=== PATIENT | male | born 1990 | race Caucasian/White ===

== ENCOUNTER 2016-04-30 11:56 | Emergency (ER) | payer SELFPAY ==
[~2016-04-30] VITALS: Ht 188 cm; Wt 83.9 kg
[~2016-04-30 11:56] MED LIST: IBUP200C48 PO
[2016-04-30] MEDS ORDERED: HYDROCODONE/APAP 5/325MG 1 EACH TABLET ONE (12:16)
[2016-04-30] MEDS ORDERED: HYDROCODONE/APAP 5/325MG 1 EACH TABLET PO ONE (12:30)
[2016-04-30 13:08] VITALS: BP 128/77
== END 2016-04-30 13:10 | disposition home or self-care (01) ==
LOC: ER 11:58
DX: S62.002A Unspecified fracture of navicular [scaphoid] bone of left wrist, initial encounter for closed fracture (principal); F17.200 Nicotine dependence, unspecified, uncomplicated; V29.88XA Motorcycle rider (driver) (passenger) injured in other specified transport accidents, initial encounter; Y93.89 Activity, other specified; Y92.89 Other specified places as the place of occurrence of the external cause; Y99.9 Unspecified external cause status
CPT/HCPCS: 29125; 73110; 99284; A4606; Z7610

== ENCOUNTER 2016-12-19 23:34 | Emergency (ER) | payer SELFPAY ==
[~2016-12-19] VITALS: Ht 188 cm; Wt 90.7 kg
[2016-12-20 00:03] VITALS: BP 125/61
[2016-12-20] MEDS ORDERED: BUPIVACAINE 0.5 % PF 150 MG/30 ML VIAL ONE (00:48)
[2016-12-20] MEDS ORDERED: BUPIVACAINE 0.5 % PF 150 MG/30 ML VIAL IJ ONE (01:00)
== END 2016-12-20 01:27 | disposition home or self-care (01) ==
LOC: ER 23:37
DX: S62.304A Unspecified fracture of fourth metacarpal bone, right hand, initial encounter for closed fracture (principal); F17.200 Nicotine dependence, unspecified, uncomplicated; W10.8XXA Fall (on) (from) other stairs and steps, initial encounter; Y93.89 Activity, other specified; Y92.89 Other specified places as the place of occurrence of the external cause; Y99.9 Unspecified external cause status
CPT/HCPCS: 29125; 73130; 99284; A4606; A6402; J3490; Z7610